=== PATIENT | female | born 1970 | race Caucasian/White ===

== ENCOUNTER 2017-05-20 15:55 | Outpatient (CLI) | payer OTHER | END 2017-05-20 16:12 | disposition home or self-care (01) | LOC: SLEEP 15:55 | PROVIDERS: ATTEND Nurse Practitioner | DX: G47.33 Obstructive sleep apnea (adult) (pediatric) (principal) ==

== ENCOUNTER 2018-02-17 17:38 | Emergency (ER) | payer OTHER ==
[~2018-02-17] VITALS: Ht 162.6 cm; Wt 88.5 kg
[2018-02-17] MEDS ORDERED: CETI10TA17 (18:00)
[2018-02-17] MEDS ORDERED: ESTR1TAB15 (18:00)
[2018-02-17] MEDS ORDERED: CELE200C (18:00)
[2018-02-17] MEDS ORDERED: CHOL10008 (18:00)
[2018-02-17] MEDS ORDERED: OMEG100032 (18:00)
--- NOTE | 2018-02-17 18:16 | ED Chest Pain ---
General Chief Complaint: Chest Pain Stated Complaint: CP AND L ARM PAIN Nursing Triage Note: PT REPORTS L SIDED CP AND ARM PAIN STARTING TODAY. PT STATES SHE HAS BEEN HAVING N/V SINCE THURSDAY. Nursing Sepsis Screen: No Definite Risk Source: patient, family Exam Limitations: no limitations History of Present Illness Date Seen by Provider: Feb 17, 2018 Time Seen by Provider: 18:13 Initial Comments Patient is a 47-year-old female who presents to the emergency room with left- sided chest pain and arm pain starting on Thursday02/14/18. She reports that on Thursday the chest pain started along with nausea, vomiting, shortness of breath, and epigastric abdominal pain. She said since Thursday the pain has been intermittent along with the nausea/vomiting, shortness of breath but today the chest pain has been constant. She did take 2 Excedrin prior to arrival which both had 250 mg of aspirin in them. Timing/Duration: intermittent, 2-3 days Severity/Quality: dull, pressure Location: substernal Radiation: arms (left arm) ASA po DE ALCOHOLIZER: Yes NTG SL DE ALCOHOLIZER: No Associated Symptoms: abdominal pain, nausea/vomiting, shortness of breath Allergies and Home Medications Allergies Coded Allergies: No Known Drug Allergies (Unverified , 02/17/18) Home Medications Hydrocodone Bit/Acetaminophen 1 Tab Tab, 1 EACH PO Q4H PRN for PAIN Prescribed by: STEPHANIE CISNEROS on 02/17/182221 Ondansetron HCl 4 Mg Tab, 4 MG PO PRN PRN for nausea vomiting Prescribed by: STEPHANIE CISNEROS on 02/17/182221 Patient Home Medication List Home Medication List Reviewed: Yes Review of Systems Constitutional: see HPI; No chills, No diaphoresis EENTM: See HPI; No Blurred Vision, No Double Vision Respiratory: See HPI; Denies Cough, Denies Orthopnea; Shortness of Air, SOA With Exertion Cardiovascular: Chest Pain Gastrointestinal: Abdominal Pain (epigastric and right upper quadrant), Nausea , Vomiting Genitourinary: See HPI; Denies Burning, Denies Discharge Musculoskeletal: see HPI; No back pain, No gout Skin: see HPI; No change in color, No change in hair/nails Psychiatric/Neurological: See HPI; Denies Anxiety, Denies Depressed Endocrine: See HPI; Denies Excessive Sweating, Denies Flushing Hematologic/Lymphatic: See HPI; Denies Anemia, Denies Blood Clots All Other Systems Reviewed Negative Unless Noted: Yes Past Obavzdl-Noewba-Casigg Hx Past Med/Social Hx: Reviewed Nursing Past Med/Soc Hx Patient Social History Alcohol Use: Denies Use Recreational Drug Use: No Smoking Status: Never a Smoker Recent Foreign Travel: No Contact w/Someone Who Travel: No Recent Infectious Disease Expo: No Recent Hopitalizations: No Physical Abuse: No Sexual Abuse: No Mistreated: No Fear: No Past Medical History Surgeries: Yes Respiratory: No Cardiac: No Neurological: No Genitourinary: No Gastrointestinal: No Musculoskeletal: No Endocrine: No HEENT: No Cancer: No Psychosocial: No Nursing Suicide Risk Score: 0 Integumentary: No Family Medical History Reviewed Nursing Family Hx Physical Exam Vital Signs Vital Signs - First Documented 02/17/18 17:53 Temp 97.3 Pulse 81 Resp 16 B/P (MAP) 151/103 (119) Pulse Ox 97 Capillary Refill : Less Than 3 Seconds Height, Weight, BMI Height: 5'4.00" Weight: 195lbs. oz. 88.388670qn; BMI Method:Stated General Appearance: No Apparent Distress, WD/WN HEENT: PERRL/EOMI, TMs Normal, Normal ENT Inspection, Pharynx Normal Neck: Full Range of Motion, Normal Inspection, Non Tender, Supple Respiratory: Chest Non Tender, Lungs Clear, Normal Breath Sounds, No Accessory Muscle Use, No Respiratory Distress Cardiovascular: Regular Rate, Rhythm, No Edema, No Gallop, No JVD, No Murmur, Normal Peripheral Pulses Gastrointestinal: Normal Bowel Sounds, No Organomegaly, No Pulsatile Mass, Soft , Tenderness (epigastric and right upper quadrant tenderness.) Extremity: Normal Capillary Refill, Normal Inspection, Normal Range of Motion, Non Tender, No Calf Tenderness, No Pedal Edema, Other Neurologic/Psychiatric: Alert, Oriented x3, Normal Mood/Affect Skin: Normal Color, Warm/Dry Lymphatic: No Adenopathy Progress/Results/Core Measures Results/Orders Lab Results Laboratory Tests Test 02/17/18 17:50 02/17/18 18:30 02/17/18 21:38 Range/Units White Blood Count 12.9 H 4.3-11.0 10^3/uL Red Blood Count 4.71 4.35-5.85 10^6/uL Hemoglobin 13.6 11.5-16.0 G/DL Hematocrit 39 35-52 % Mean Corpuscular Volume 83 80-99 FL Mean Corpuscular Hemoglobin 29 25-34 PG Mean Corpuscular Hemoglobin Concent 35 32-36 G/DL Red Cell Distribution Width 14.2 10.0-14.5 % Platelet Count 328 130-400 10^3/uL Mean Platelet Volume 10.7 H 7.4-10.4 FL Neutrophils (%) (Auto) 53 42-75 % Lymphocytes (%) (Auto) 35 12-44 % Monocytes (%) (Auto) 7 0-12 % Eosinophils (%) (Auto) 4 0-10 % Basophils (%) (Auto) 0 0-10 % Neutrophils # (Auto) 6.8 1.8-7.8 X 10^3 Lymphocytes # (Auto) 4.6 H 1.0-4.0 X 10^3 Monocytes # (Auto) 1.0 0.0-1.0 X 10^3 Eosinophils # (Auto) 0.6 H 0.0-0.3 10^3/uL Basophils # (Auto) 0.0 0.0-0.1 10^3/uL Prothrombin Time 12.4 12.2-14.7 SEC INR Comment 0.9 0.8-1.4 Activated Partial Thromboplast Time 31 24-35 SEC D-Dimer 1.90 H 0.00-0.49 UG/ML Sodium Level 137 135-145 MMOL/L Potassium Level 4.0 3.6-5.0 MMOL/L Chloride Level 106 98-107 MMOL/L Carbon Dioxide Level 23 21-32 MMOL/L Anion Gap 8 5-14 MMOL/L Blood Urea Nitrogen 11 7-18 MG/DL Creatinine 0.66 0.60-1.30 MG/DL Estimat Glomerular Filtration Rate > 60 BUN/Creatinine Ratio 17 Glucose Level 88 70-105 MG/DL Calcium Level 9.2 8.5-10.1 MG/DL Magnesium Level 2.1 1.8-2.4 MG/DL Total Bilirubin 0.3 0.1-1.0 MG/DL Aspartate Amino Transf (AST/SGOT) 20 5-34 U/L Alanine Aminotransferase (ALT/SGPT) 22 0-55 U/L Alkaline Phosphatase 93 40-136 U/L Total Creatine Kinase 54 29-168 U/L Myoglobin 17.7 10.0-92.0 NG/ML Troponin I < 0.30 < 0.30 <0.30 NG/ML Total Protein 7.1 6.4-8.2 GM/DL Albumin 3.9 3.2-4.5 GM/DL Amylase Level 38 25-125 U/L Lipase 19 8-78 U/L Urine Color YELLOW Urine Clarity CLEAR Urine pH 6 5-9 Urine Specific Melvin 1.020 1.016-1.022 Urine Protein NEGATIVE NEGATIVE Urine Glucose (UA) NEGATIVE NEGATIVE Urine Ketones NEGATIVE NEGATIVE Urine Nitrite NEGATIVE NEGATIVE Urine Bilirubin 2+ H NEGATIVE Urine Urobilinogen NORMAL NORMAL MG/DL Urine Leukocyte Esterase NEGATIVE NEGATIVE Urine RBC (Auto) 3+ H NEGATIVE Urine RBC 2-5 H /HPF Urine WBC NONE /HPF Urine Squamous Epithelial Cells RARE /HPF Urine Crystals NONE /LPF Urine Bacteria NONE /HPF Urine Casts NONE /LPF Urine Mucus NEGATIVE /LPF Urine Culture Indicated NO My Orders Orders - BERNOT,STEPHANIE Cbc With Automated Diff (02/17/18 18:10) Magnesium (02/17/18 18:10) Chest 1 View, Ap/Pa Only (02/17/18 18:10) Ekg Tracing (02/17/18 18:10) Cardiac Profile 1 (02/17/18 18:10) Comprehensive Metabolic Panel (02/17/18 18:10) Myoglobin Serum (02/17/18 18:10) Protime With Inr (02/17/18 18:10) Partial Thromboplastin Time (02/17/18 18:10) O2 (02/17/18 18:10) Monitor-Rhythm Ecg Trace Only (02/17/18 18:10) Saline Lock/Iv-Start (02/17/18 18:10) Creatine Kinase (02/17/18 18:10) Lipase (02/17/18 18:10) Amylase (02/17/18 18:10) Fibrin Degradation Products (02/17/18 18:10) Ua Culture If Indicated (02/17/18 18:12) Ct Angio Chest W (02/17/18 19:04) Iohexol Injection (Omnipaque 350 Mg/Ml 1 (02/17/18 19:15) Sodium Chloride Flush (Catheter Flush Sy (02/17/18 19:15) Ns (Ivpb) (Sodium Chloride 0.9%) (02/17/18 19:15) Pharmacy Communication (Pharmacy Communi (02/17/18 19:06) Fentanyl Injection (Sublimaze Injection (02/17/18 19:15) Ondansetron Injection (Zofran Injectio (02/17/18 19:15) Us Gallbladder [id number] (02/17/18 20:15) Troponin I (02/17/18 21:35) Fentanyl Injection (Sublimaze Injection (02/17/18 21:45) Iv Push Loan Manager Ed (02/17/18 ) Medications Given in ED Vital Signs/I&O 02/17/18 02/17/18 17:53 22:30 Temp 97.3 Pulse 81 87 Resp 16 16 B/P (MAP) 151/103 (119) 132/95 Pulse Ox 97 99 Blood Pressure Mean: 119 Progress Progress Note : Time: 19:21 Progress Note Given the patient's elevated d-dimer I think that a CT angio scan of the chest is warranted. I discussed these results with the patient and she agrees. The patient complains of nausea and pain. Medications have been ordered. The patient also is having right upper quadrant tenderness that is unrelieved by pain medication ultrasound has also been ordered. 2100: Spoke to Dr. Andrade and he recommends second troponin recheck and follow up with primary care. Diagnostic Imaging Diagonstic Imaging: Xray, CT, Ultrasound Plain Films/CT/US/NM/MRI: chest, other Comments NAME: [facility] REC#: [id number] PT STATUS: REG ER : 1970 PHYSICIAN: STEPHANIE CISNEROS ADMIT DATE: 02/17/18/ER Signed Date of Exam: 02/17/18 CHEST 1 VIEW, AP/PA ONLY INDICATION: Chest pain. COMPARISON: None. EXAMINATION: Single view of the chest was obtained. FINDINGS: Clear lungs, bilaterally. The heart is normal. There is no pneumothorax. The osseous structures are normal. IMPRESSION: Negative chest. Dictated by: Dictated on workstation # [id number] Dict: 02/17/18 1833 Trans: 02/17/18 1852 Interpreted by: YISEL DOCKERY Electronically signed by: YISEL DOCKERY 02/17/18 185 NAME: [facility] REC#: [id number] PT STATUS: REG ER : 1970 PHYSICIAN: STEPHANIE CISNEROS ADMIT DATE: 02/17/18/ER Signed Date of Exam: 02/17/18 CT ANGIO CHEST W CLINICAL INDICATION: Patient with chest pain, left arm pain since Thursday which is worse today. Patient has nausea and vomiting. EXAM: CT angiogram of the chest performed with 125 cc Omnipaque 350 IV contrast. Coronal and oblique MIP images of the vasculature were created to better evaluate anatomy. COMPARISON: Chest x-ray dated 02/17/2018. FINDINGS: There is no evidence of pulmonary embolism. There is no thoracic aortic dissection or aneurysm. Lungs are clear. There is no pleural effusion or pneumothorax. There is no mediastinal or axillary lymphadenopathy. Mediastinal structures and heart show no significant abnormality. There is diffuse low-attenuation seen throughout the liver likely related to diffuse fatty infiltration. Visualized portions of the upper abdominal structures are unremarkable. Bones show no significant acute process. IMPRESSION: 1: There is no evidence of pulmonary embolism. There is no thoracic aortic aneurysm or dissection. 2: Likely diffuse fatty infiltration of the liver. Dictated by: Dictated on workstation # [id number] Dict: 02/17/181940 Trans: 02/17/182216 Interpreted by: RAPHAEL EDGAR MD Electronically signed by: RAPHAEL EDGAR MD 02/17/182216 NAME: [facility] REC#: [id number] PT STATUS: REG ER : 1970 PHYSICIAN: STEPHANIE CISNEROS ADMIT DATE: 02/17/18/ER Signed Date of Exam: 02/17/18 US GALLBLADDER [id number] Clinical indication: Patient with chest pain and left arm pain. Exam: Right upper quadrant ultrasound. Comparison: CT angiogram of the chest with contrast dated 02/17/2018. Findings: The pancreas is obscured by overlying bowel gas. The pancreas cannot be evaluated on this exam. There is diffuse hyperechogenicity seen throughout the liver. The liver is enlarged, measuring roughly 18 cm in craniocaudal dimension. There is no intrahepatic ductal dilation. The common bile duct is obscured. The gallbladder is mildly fluid filled with no gallbladder wall thickening or pericholecystic fluid. There is no sonographic Raymundo sign. There is no stone or sludge seen. Right kidney is unremarkable with no hydronephrosis, stone or mass seen. The right kidney measures 12.4 cm in craniocaudal dimension. There is no abdominal ascites. Impression: 1: Incomplete visualization of the pancreas. If there is clinical concern for pancreatic abnormality, serology tests or CT scan may better evaluate. 2: Gallbladder is unremarkable. 3: There is hepatomegaly with diffuse hyperechogenicity seen throughout the liver which may be related to diffuse fatty infiltration. Dictated by: Dictated on workstation # [id number] Dict: 02/17/182201 Trans: 02/17/182217 Interpreted by: RAPHAEL EDGAR MD Electronically signed by: RAPHAEL EDGAR MD 02/17/182217 Departure Impression Primary Impression: Chest pain Additional Impression: Abdominal pain Disposition: 01 HOME, SELF-CARE Condition: Stable/Unchanged Departure-Patient Inst. Decision time for Depature: 22:30 Referrals: ELYSSA MARTIN DO (PCP/Family) Primary Care Physician Patient Instructions: Chest Pain (DC), Nausea and Vomiting, Adult Add. Discharge Instructions: Take medications as directed. Follow up with your doctor within 1 week. Return back to the emergency room for increased pain, shortness of breath, chest pain, abdominal pain, nausea, vomiting or any other concerns as needed. All discharge instructions reviewed with patient and/or family. Voiced understanding. Scripts Ondansetron HCl (Zofran) 4 Mg Tab 4 MG PO PRN PRN for nausea vomiting for 10 Days, TAB Prov: STEPHANIE CISNEROS 02/17/18 Hydrocodone Bit/Acetaminophen (Hydrocodone/Acetaminophen 5/325mg Tablet) 1 Tab Tab 1 EACH PO Q4H PRN for PAIN, #14 TAB Prov: STEPHANIE CISNEROS 02/17/18 Copy Copies To 1: ELYSSA MARTIN TRAVIS Feb 17, 2018 18:16
[2018-02-17 18:18] LABS: BASOPHILS % (AUTO) 0 % (0-10); EOSINOPHILS # (AUTO) 0.6 10^3/uL (0.0-0.3); EOSINOPHILS % (AUTO) 4 % (0-10); HEMATOCRIT 39 % (35-52); HEMOGLOBIN 13.6 G/DL (11.5-16.0); LYMPHOCYTES # (AUTO) 4.6 X 10^3 (1.0-4.0); LYMPHOCYTES % (AUTO) 35 % (12-44); MEAN CORPUSCULAR HEMOGLOBIN 29 PG (25-34); MEAN CORPUSCULAR HGB CONC 35 G/DL (32-36); MEAN CORPUSCULAR VOLUME 83 FL (80-99); MEAN PLATELET VOLUME 10.7 FL (7.4-10.4); MONOCYTES % (AUTO) 7 % (0-12); NEUTROPHILS # (AUTO) 6.8 X 10^3 (1.8-7.8); NEUTROPHILS % (AUTO) 53 % (42-75); PLATELET COUNT 328 10^3/uL (130-400); RED BLOOD COUNT 4.71 10^6/uL (4.35-5.85); RED CELL DISTRIBUTION WIDTH 14.2 % (10.0-14.5); WHITE BLOOD COUNT 12.9 10^3/uL (4.3-11.0)
[2018-02-17 18:22] LABS: INR 0.9 (0.8-1.4); PROTHROMBIN TIME PATIENT 12.4 SEC (12.2-14.7)
[2018-02-17 18:33] LABS: ALANINE AMINOTRANSFERASE 22 U/L (0-55); ALBUMIN 3.9 GM/DL (3.2-4.5); ALKALINE PHOSPHATASE 93 U/L (40-136); AMYLASE 38 U/L (25-125); BILIRUBIN,TOTAL 0.3 MG/DL (0.1-1.0); BUN/CREATININE RATIO 17; CALCIUM 9.2 MG/DL (8.5-10.1); CARBON DIOXIDE 23 MMOL/L (21-32); CHLORIDE 106 MMOL/L (98-107); CREATINE KINASE 54 U/L (29-168); CREATININE SERUM 0.66 MG/DL (0.60-1.30); GFR ESTIMATED > 60; GLUCOSE 88 MG/DL (70-105); LIPASE 19 U/L (8-78); MAGNESIUM 2.1 MG/DL (1.8-2.4); SODIUM 137 MMOL/L (135-145); TOTAL PROTEIN 7.1 GM/DL (6.4-8.2)
[2018-02-17 18:39] LABS: MYOGLOBIN SERUM 17.7 NG/ML (10.0-92.0)
--- NOTE | 2018-02-17 18:45 | Diagnostic Imaging Report ---
INDICATION: Chest pain. COMPARISON: None. EXAMINATION: Single view of the chest was obtained. FINDINGS: Clear lungs, bilaterally. The heart is normal. There is no pneumothorax. The osseous structures are normal. IMPRESSION: Negative chest. Dictated by: Dictated on workstation # [id number]
[2018-02-17 18:47] LABS: CLARITY,URINE CLEAR; COLOR,URINE YELLOW; GLUCOSE, URINE (UA) NEGATIVE (NEGATIVE); KETONES,URINE NEGATIVE (NEGATIVE); LEUKOCYTE ESTERASE ,URINE NEGATIVE (NEGATIVE); NITRITE,URINE NEGATIVE (NEGATIVE); PH,URINE 6 (5-9); PROTEIN,URINE NEGATIVE (NEGATIVE); UROBILINOGEN,URINE NORMAL (NORMAL)
[2018-02-17 18:56] LABS: SQUAMOUS EPITHELIAL CELL,UR RARE /HPF
[2018-02-17 18:57] LABS: BILIRUBIN,URINE 2+ (NEGATIVE)
[2018-02-17] MEDS ORDERED: NS 250 ML (IVPB) BAG IV ONE (19:15)
[2018-02-17] MEDS ORDERED: CATHETER FLUSH 10 ML SYR IV PRN (19:15)
[2018-02-17] MEDS ORDERED: IOHEXOL 350 MG/ML 150 ML (OMNIPAQUE 350) VIAL IV ONE (19:15)
[2018-02-17] MEDS ORDERED: fentaNYL INJECTION 100 MCG/2 ML AMP IVP ONE ×2 (19:15→21:45)
[2018-02-17] MEDS ORDERED: ONDANSETRON 4 MG/2 ML (SDV) Z0FRAN IVP ONE (19:15)
--- NOTE | 2018-02-17 19:46 | Diagnostic Imaging Report ---
CLINICAL INDICATION: Patient with chest pain, left arm pain since Thursday which is worse today. Patient has nausea and vomiting. EXAM: CT angiogram of the chest performed with 125 cc Omnipaque 350 IV contrast. Coronal and oblique MIP images of the vasculature were created to better evaluate anatomy. COMPARISON: Chest x-ray dated 02/17/2018. FINDINGS: There is no evidence of pulmonary embolism. There is no thoracic aortic dissection or aneurysm. Lungs are clear. There is no pleural effusion or pneumothorax. There is no mediastinal or axillary lymphadenopathy. Mediastinal structures and heart show no significant abnormality. There is diffuse low-attenuation seen throughout the liver likely related to diffuse fatty infiltration. Visualized portions of the upper abdominal structures are unremarkable. Bones show no significant acute process. IMPRESSION: 1: There is no evidence of pulmonary embolism. There is no thoracic aortic aneurysm or dissection. 2: Likely diffuse fatty infiltration of the liver. Dictated by: Dictated on workstation # [id number]
--- NOTE | 2018-02-17 22:10 | Diagnostic Imaging Report ---
Clinical indication: Patient with chest pain and left arm pain. Exam: Right upper quadrant ultrasound. Comparison: CT angiogram of the chest with contrast dated 02/17/2018. Findings: The pancreas is obscured by overlying bowel gas. The pancreas cannot be evaluated on this exam. There is diffuse hyperechogenicity seen throughout the liver. The liver is enlarged, measuring roughly 18 cm in craniocaudal dimension. There is no intrahepatic ductal dilation. The common bile duct is obscured. The gallbladder is mildly fluid filled with no gallbladder wall thickening or pericholecystic fluid. There is no sonographic Raymundo sign. There is no stone or sludge seen. Right kidney is unremarkable with no hydronephrosis, stone or mass seen. The right kidney measures 12.4 cm in craniocaudal dimension. There is no abdominal ascites. Impression: 1: Incomplete visualization of the pancreas. If there is clinical concern for pancreatic abnormality, serology tests or CT scan may better evaluate. 2: Gallbladder is unremarkable. 3: There is hepatomegaly with diffuse hyperechogenicity seen throughout the liver which may be related to diffuse fatty infiltration. Dictated by: Dictated on workstation # [id number]
[2018-02-17] MEDS ORDERED: ACHD5005 PO (22:22)
[2018-02-17] MEDS ORDERED: ONDN4T PO (22:22)
[2018-02-17 22:30] VITALS: BP 132/95
== END 2018-02-17 22:30 | disposition home or self-care (01) ==
LOC: EDUNIT# 17:38 → ER 17:40
DX: R07.89 Other chest pain (principal); R10.13 Epigastric pain
CPT/HCPCS: 36415; 71045; 71275; 76705; 80053; 81000; 82150; 82550; 83690; 83735; 83874; 84484; 85025; 85379; 85610; 85730; 93005; 93041; 96374; 96375

== ENCOUNTER → 2022-04-09 | Outpatient (CLI) | payer OTHER ==
[~2022-04-09] MED LIST: ACHD5005 PO; CELE200C; CETI10TA17; CHOL10008; ESTR1TAB15; OMEG100032; ONDN4T PO
[2022-04-09 14:07] VITALS: BP 135/83
--- NOTE | 2022-04-09 17:05 | Cardiology Stress Test Report ---
Stress Test Report Date of Procedure/Referring: Date of Procedure: Apr 09, 2022 PCP Elyssa Wayne DO Admitting Physician Admitting Physician: Attending Physician: Shanti Lorenzo MD Indications: cp Baseline Heart Rate: 70 Baseline Blood Pressure: Blood Pressure Systolic: 135 Blood Pressure Diastolic: 83 Baseline EKG: Baseline EKG: NSR Summary/Conclusion: Summary: In summary, the patient started exercising with a baseline heart rate, blood pressure and EKG mentioned above Patient was able to exercise for a total of 6 minutes on Olman protocol, METs 7.3 Maximum heart rate 155 Maximum blood pressure 211/88 Stress EKG, Minimal nondiagnostic changes Recovery EKG , Return to baseline Conclusion: 1. Good exercise tolerance for a total of 6 minutes on Olman protocol,7.3 METs, achieving 91percent of maximum expected heart rate 2. Minimal nondiagnostic EKG changes with exercise returned to baseline during recovery 3. No arrhythmia was noted 4. Hypertensive response to exercise with peak blood pressure 211/88 returned to baseline during recovery Copy Copies To 1: ELYSSA WAYNE BASHAR J MD Apr 09, 2022 17:05
== END ==
LOC: CARD 13:51
PROVIDERS: ATTEND Internal Medicine Cardiovascular Disease
DX: R07.9 Chest pain, unspecified (principal); R00.2 Palpitations
CPT/HCPCS: 93017